=== PATIENT | female | born 1995 | race Caucasian/White ===

== ENCOUNTER 2018-10-21 18:13 | Emergency (ER) | payer OTHER ==
[~2018-10-21] VITALS: Ht 165.1 cm; Wt 55.9 kg
[2018-10-21] MEDS ORDERED: ZOLO25TA PO (18:21)
[2018-10-21] MEDS ORDERED: TOPI100T9 PO (18:21)
[2018-10-21] MEDS ORDERED: METH5TAB76 PO (18:21)
[2018-10-21 18:52] LABS: HEMOGLOBIN 12.7 g/dl (12.0-15.5); MEAN CORPUSCULAR HEMOGLOBIN 32.5 pg (27.0-33.0); MEAN CORPUSCULAR HGB CONC 33.4 g/dl (32.0-36.5); MEAN CORPUSCULAR VOLUME 97.2 fl (80.0-96.0); PLATELET COUNT, AUTOMATED 254 10^3/uL (150-450); RED BLOOD COUNT 3.91 10^6/uL (4.00-5.40); WHITE BLOOD COUNT 5.7 10^3/uL (4.0-10.0)
[2018-10-21] MEDS ORDERED: ACETAMINOPHEN 325 MG TAB PO ONE (19:15)
[2018-10-21] MEDS ORDERED: NS 1,000 ML IV ONE (19:15)
[2018-10-21] MEDS ORDERED: ONDANSETRON 4MG/2ML VIAL (J2405) IV ONE (19:15)
[2018-10-21 19:25] LABS: ALBUMIN 3.7 GM/DL (3.2-5.2); ALT/SGPT 12 U/L (12-78); BILIRUBIN,DIRECT 0.2 MG/DL (0.0-0.2); BILIRUBIN,TOTAL 0.3 MG/DL (0.2-1.0); BLOOD UREA NITROGEN 10 MG/DL (7-18); CALCIUM LEVEL 8.2 MG/DL (8.5-10.1); CARBON DIOXIDE LEVEL 29 MEQ/L (21-32); CHLORIDE LEVEL 107 MEQ/L (98-107); GLOMERULAR FILTRATION RATE > 60.0 (>60); GLUCOSE, FASTING 94 MG/DL (70-100); LIPASE 63 U/L (73-393); POTASSIUM SERUM 3.6 MEQ/L (3.5-5.1); SODIUM LEVEL 142 MEQ/L (136-145); TOTAL PROTEIN 6.6 GM/DL (6.4-8.2)
--- NOTE | 2018-10-21 19:27 | REP ---
Clinical: Right flank pain. Technique: Axial noncontrast images from the lung bases to the pubic symphysis with coronal and sagittal re-formations. Comparison: None. Findings: Lung bases are clear. Liver, spleen, pancreas, gallbladder, bilateral adrenal glands and kidneys are normal for noncontrast evaluation. No perinephric stranding, hydroureteronephrosis, intrarenal or obstructing ureteral calculi are identified. The enteric system is without obstruction or obvious acute inflammatory process. Normal appendix identified in the right lower quadrant. Pelvis demonstrates partially collapsed normal bladder and age-appropriate uterus/adnexa. Small amount of free fluid in the posterior cul-de-sac likely physiologic. No adenopathy. No free air. Abdominal aorta without aneurysm. Musculoskeletal structures without focal osseous abnormality. Impression: 1. No acute abdominopelvic pathology appreciated. 2. Normal appearance to the urinary tract system without intrarenal or obstructing calculi, hydroureteronephrosis or perinephric stranding. 3. Normal appendix. 4. Small amount of free fluid in the pelvis likely physiologic and related to menstrual cycle. Electronically Signed by Dio Millard MD 10/21/2018 07:19 P
[2018-10-21] MEDS ORDERED: DICYCLOMINE 10 MG CAP PO ONE ×2 (20:00→20:30)
[2018-10-21] MEDS ORDERED: DICY10CA13 PO (20:22)
[2018-10-21 20:31] VITALS: BP 118/72
[2018-10-21 20:40] LABS: BASO % 0.3 % (0.0-1.0); EOS # 0.2 10^3/uL (0.0-0.50); EOS % 2.8 % (0.0-3.0); LYMPH % 16.7 % (24.0-44.0); MONO # 0.5 10^3/uL (0.0-0.8); MONO % 7.8 % (0.0-5.0); NEUTROPHILS # 4.2 10^3/uL (1.8-7.7); NEUTROPHILS % 72.2 % (36.0-66.0)
== END 2018-10-21 20:47 | disposition home or self-care (01) ==
LOC: M ED 18:13
DX: R10.9 Unspecified abdominal pain (principal); R10.13 Epigastric pain; R19.7 Diarrhea, unspecified
CPT/HCPCS: 74176; 80048; 80076; 81001; 83690; 85027; 96361; 96374; 99284; J2405